=== PATIENT | female | born 1995 | race Caucasian/White ===

== ENCOUNTER 2016-07-20 17:50 | Emergency (ER) | payer OTHER ==
--- NOTE | ~2016-07-20 | ER ---
PATIENT'S NAME: ERIC COVINGTON [facility] AGE: 21 Y [address] ROOM: [place] [address] LOCATION: [facility] ADMIT DATE: 07/20/2016 ER/Outpatient Report DISCHARGE DATE: 07/20/2016 FAMILY PHYSICIAN: Juan Méndez MD ATTENDING PHYSICIAN: Vikash Graf Time of Arrival: 1750 hours. Time of Evaluation: 1817 hours. IDENTIFICATION: A 21-year-old female. CHIEF COMPLAINT: Head injury. HISTORY OF PRESENT ILLNESS: The patient is a 21-year-old female with type 1 diabetes. She has an insulin pump, but has not had it on for the past 2 days because she has not gotten a new one sent to her. She has been using just p.r.n. insulin and actually did not take her long-acting insulin yesterday. This morning, she said that she got out of the shower and blacked out. She fell back and hit the back of her head. She then vomited at 11:00 a.m. Her boyfriend got her to bed, and then she apparently slept all afternoon. When I asked her if she was unconscious, she said, "I do not know." She complains of a posterior headache and some back pain. Her legs feel heavy, and she has had vomiting and diarrhea since yesterday. PAST MEDICAL HISTORY: ALLERGIES: NO KNOWN DRUG ALLERGIES. CURRENT MEDICATIONS: Humalog insulin pump, she has not had in weeks; she told me a couple of days, but she told the nurse 2 weeks. Lantus, she has not had in over 24 hours. She is getting subcu Humalog in the past 2 weeks. MEDICAL PROBLEMS: Diabetes type 1, obesity, asthma, pseudotumor cerebri, and thyroiditis. PRIOR SURGERIES: EGD, spinal tap, and urethral surgery. SOCIAL HISTORY: The patient lives here in [place]. 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 Tobacco use, denies. PATIENT'S NAME: ERIC COVINGTON [facility] AGE: 21 Y [address] ROOM: [place] [address] LOCATION: [facility] ADMIT DATE: 07/20/2016 ER/Outpatient Report DISCHARGE DATE: 07/20/2016 FAMILY PHYSICIAN: Juan Méndez MD ATTENDING PHYSICIAN: Vikash Graf Alcohol use, denies. Drug use, denies. FAMILY HISTORY: Positive for diabetes, hypertension, hypothyroidism, and CVA. REVIEW OF SYSTEMS: All systems reviewed and negative other than what is noted in the HPI. The patient states her last menstrual period was on June 20 and was normal. She denies chance of . PHYSICAL EXAMINATION: VITAL SIGNS: Height 5 feet 2 inches, weight 94.2 kg. Blood pressure 161/87, pulse 120, respirations 16, temperature 98.6, and saturations 98% on room air. Recheck heart rate after IV fluids was 84. GENERAL: A 21-year-old female, in no acute distress. HEAD: Normocephalic, atraumatic. EARS: TMs translucent, both ears. EYES: Pupils equal and reactive to light and accommodation. Extraocular movements intact. NOSE: Mucosa pink. No lesions or drainage. MOUTH: No lesions. Pharynx benign. NECK: Supple. No lymphadenopathy. SPINE: No tenderness to palpation of her cervical spine or thoracic spine. She does have some lumbar spine tenderness, specifically in the lumbar paraspinal region. HEART: Sinus tachycardia. No murmur, rub, or gallop. LUNGS: Clear to auscultation. ABDOMEN: Bowel sounds present. Soft. Nondistended. No hepatosplenomegaly. No palpable masses. Minimally tender to deep palpation. No rebound or guarding. SKIN: [place], warm, and dry. No lesions or rashes noted. NEURO: The patient is alert and oriented x4. Cranial nerves 2 through 12 grossly intact. Motor strength 5/5 throughout. Sensation is intact to light touch. No lower extremity edema. No calf tenderness. LABORATORY DATA AND X-RAYS: EKG: Sinus tachycardia, 104 beats per minute. Nonspecific ST-T wave changes. CPK 50, CK-MB 0.8, troponin I less than 0.040. HCG elevated at 295. Serum ketones positive at 1:8. UA: 1000 mg of glucose per dL, 150 mg of ketones per dL. Sodium 135, potassium 3.9, chloride 105, CO2 of 18, BUN 14, creatinine 0.8, blood sugar 228. Liver enzymes normal. Magnesium 1.8. Hemoglobin 12.5, hematocrit 38.8, platelets 390, white count 12.5 with a normal differential. Venous pH 7.37. Head CT, normal per Radiology. IMPRESSION: PATIENT'S NAME: ERIC COVINGTON [facility] AGE: 21 Y [address] ROOM: [place], [place] [address] LOCATION: [facility] ADMIT DATE: 07/20/2016 ER/Outpatient Report DISCHARGE DATE: 07/20/2016 FAMILY PHYSICIAN: Juan Méndez MD ATTENDING PHYSICIAN: Vikash Graf 1. Head injury. 2. Early . 3. Diabetic ketoacidosis. PLAN: The patient was given 1 L of IV fluids here and Zofran for nausea. She felt much improved. Her vital signs were normal. She will go home to rest, monitor sugars 4 times daily, head injury precautions, and follow up with Dr. Méndez in 1 day, follow up sooner if any problems or concerns, and I did discuss this with Dr. Harvey. ED COE MD CAR/modl /[id number] d: 07/21/16 0617 t: 07/22/16 0538, OUTPATIENT REPORT
[~2016-07-20 17:50] MED LIST: HUMALOG100 UNIT/1 SUB-Q; LANTUS (IN100 UNIT/M SUB-Q; NOVOLOG100 UNIT/M SUB-Q; TYLENOL325 MG PO; XANAX0.25 MG PO; ZOLOFT50 MG PO
[2016-07-20 18:54] LABS: BASOPHIL # 0.1 K/uL (0.0-0.2); BASOPHIL % 0.4 %; BICARBONATE 17.9 mmol/L (18.0-23.0); EOSINOPHIL % 0.2 %; HEMATOCRIT 38.8 % (33.0-46.0); HEMOGLOBIN 12.5 g/dL (11.0-15.0); IMMATURE GRANULOCYTE % 0.3 %; LYMPHOCYTE # 1.6 K/uL (0.8-4.0); LYMPHOCYTE % 12.8 %; MCHC 32.2 gm/dL (32.0-36.5); MCV 77.4 fl (83.0-98.0); MONOCYTE # 0.6 K/uL (0.0-1.0); MONOCYTE % 4.8 %; MPV 10.3 fl (9.4-12.4); NEUTROPHIL # (ANC) 10.2 K/uL (1.8-7.8); NEUTROPHIL % 81.5 %; NRBC % 0 /100WBC (0-0.00); PCO2 31 mmHg (35-45); PLATELET COUNT 390 K/uL (150-450); RBC 5.01 M/uL (3.50-5.00); RDW-CV 15.4 % (11.9-14.6); WBC 12.5 K/uL (4.0-11.0)
[2016-07-20 18:55] LABS: PO2 49 mmHg (80-90)
[2016-07-20 19:04] LABS: BILIRUBIN URINE NEGATIVE (NEGATIVE); BLOOD URINE NEGATIVE /UL (NEGATIVE); COLOR URINE YELLOW (YELLOW); GLUCOSE URINE 1000 mg/dL (NEGATIVE); KETONE URINE 150 mg/dL (NEGATIVE); LEUKOCYTES URINE NEGATIVE /UL (NEGATIVE); NITRITE URINE NEGATIVE (NEGATIVE); PROTEIN URINE NEGATIVE (NEGATIVE); TURBIDITY URINE CLEAR (CLEAR); UROBILINOGEN URINE NORMAL (NORMAL)
[2016-07-20 19:17] LABS: ALBUMIN 3.7 gm/dL (3.5-5.0); ALK PHOS 111 IU/L (33-138); ALT 18 IU/L (12-78); ANION GAP 15.9 (10.0-19.0); AST 10 IU/L (10-40); BLOOD UREA NITROGEN 14 mg/dL (6-24); CALCIUM 8.9 mg/dL (8.5-10.5); CHLORIDE 105 mMol/L (96-110); CO2 18 mMol/L (22-32); CREATININE 0.8 mg/dL (0.5-1.1); ESTIMATED GFR (MDRD EQUATION) > 60; MAGNESIUM 1.8 mg/dL (1.8-2.6); PHOSPHORUS 1.7 mg/dL (2.5-4.9); POTASSIUM 3.9 mMol/L (3.7-5.1); SODIUM 135 mMol/L (135-145); TOTAL BILIRUBIN 0.5 mg/dL (0.0-1.5); TOTAL PROTEIN 8.3 g/dL (6.0-8.4)
[2016-07-20 20:43] LABS: CPK 50 IU/L (21-215)
== END 2016-07-20 22:21 | disposition disaster alternative care site (69) ==
LOC: GACC 17:50
PROVIDERS: Emergency Medicine; Family Medicine
DX: O9A.219 Injury, poisoning and certain other consequences of external causes complicating pregnancy, unspecified trimester (principal); S09.90XA Unspecified injury of head, initial encounter; O24.919 Unspecified diabetes mellitus in pregnancy, unspecified trimester; E10.10 Type 1 diabetes mellitus with ketoacidosis without coma; O99.280 Endocrine, nutritional and metabolic diseases complicating pregnancy, unspecified trimester; E06.9 Thyroiditis, unspecified; J45.909 Unspecified asthma, uncomplicated; Z98.890 Other specified postprocedural states; E66.9 Obesity, unspecified; W18.39XA Other fall on same level, initial encounter; Y93.89 Activity, other specified
CPT/HCPCS: J2405; J7030

== ENCOUNTER 2016-08-05 22:31 | Emergency (ER) | payer OTHER ==
--- NOTE | ~2016-08-05 | ER ---
PATIENT'S NAME: ERIC COVINGTON [facility] AGE: 21 Y [address] ROOM: [place] [id number] LOCATION: [facility] ADMIT DATE: 08/05/2016 ER/Outpatient Report DISCHARGE DATE: 08/06/2016 FAMILY PHYSICIAN: Juan Méndez MD ATTENDING PHYSICIAN: Melvin Ruiz CHIEF COMPLAINT: Vaginal bleeding in . HISTORY OF PRESENT ILLNESS: The patient does not remember her last menstrual period, but it was sometime in May. She was seen at the start of July and diagnosed with after some evaluation related to a fall. She notes that she had significant bleeding today, did go through 3 pads and at that time had significant bleeding. She had spotting starting several days ago. She denies any significant pain associated with this. This is her first . She denies history of STI or unusual vaginal discharge and has no fevers, chills, nausea, or vomiting. She was working today and thus could not come in for evaluation until now. She does have a history of diabetes, but denies any other major medical issues. PAST MEDICAL HISTORY: Documented on the record and reviewed by me. SOCIAL HISTORY: Documented on the record and reviewed by me. MEDICATIONS: Documented on the record and reviewed by me. ALLERGIES: DOCUMENTED ON THE RECORD AND REVIEWED BY ME. REVIEW OF SYSTEMS: All systems are reviewed and negative except as noted in the HPI. PHYSICAL EXAMINATION: VITAL SIGNS: Blood pressure 154/70, pulse is 93, respiratory rate is 18, temperature 98.4, SpO2 is 90% on room air. GENERAL: Age appropriate female, sitting upright on exam table in no acute pain or distress. NEUROLOGIC: Awake and alert. GCS 15. No focal deficits. No asymmetry. HEENT: Normocephalic, atraumatic. Eyes are PERRL. Oropharynx is clear. PATIENT'S NAME: ERIC OCVINGTON [facility] AGE: 21 Y [address] ROOM: [place], [place] [address] LOCATION: [facility] ADMIT DATE: 08/05/2016 ER/Outpatient Report DISCHARGE DATE: 08/06/2016 FAMILY PHYSICIAN: Juan Méndez MD ATTENDING PHYSICIAN: Melvin Ruiz NECK: Supple. Trachea is midline. CHEST/HEART: Regular rate and rhythm with no murmurs. LUNGS: Clear to auscultation bilaterally with no rhonchi, wheezes, or rales. ABDOMEN: Benign, soft, and nontender. BACK: Normal to inspection. : Normal female genitalia. Vaginal mucosa is moist and pink. The cervix is midposition. The os is open. There is tissue visible. Scant bleeding appreciated. EXTREMITIES: Warm and well perfused with no deformities. SKIN: Warm, dry, and intact. LABORATORY DATA AND X-RAYS: Blood type O positive. CMS with elevated glucose otherwise grossly unremarkable. HCG is 8657. White blood cell count 10.6, hemoglobin 11.2, platelets of 337, INR is 1. Transvaginal ultrasound dates fetus at 6 weeks 1 day with heart rate of 120. IMPRESSION: Threatened versus inevitable miscarriage. EMERGENCY DEPARTMENT COURSE: The patient was seen and evaluated as above. Presentation not consistent with infection. Ultrasound diagnosis IUP with heart rate. Based on the open os with tissue prolapsing and significant bleeding with a low heart rate, I think this is likely an inevitable . I did discuss the case with Dr. Rothman and the patient will be referred to clinic in the morning for further evaluation and treatment. She is to take Tylenol as needed if any cramping or pain. She is to return immediately if she is soaking a pad an hour for more than 3 hours or starts passing clots the size of quarters or golf balls. All questions were answered and the patient was discharged in good condition and remarkably good spirits in this setting. MD DAVINA SERVIN/marsha /[id number] d: 08/06/16 08 t: 08/11/16 0952, OUTPATIENT REPORT
[2016-08-05 23:22] LABS: BASOPHIL % 0.4 %; EOSINOPHIL # 0.1 K/uL (0.0-0.5); EOSINOPHIL % 0.6 %; HEMOGLOBIN 11.2 g/dL (11.0-15.0); IMMATURE GRANULOCYTE % 0.3 %; LYMPHOCYTE # 2.2 K/uL (0.8-4.0); LYMPHOCYTE % 20.4 %; MCH 25.5 pg (27.0-34.0); MCV 79.5 fl (83.0-98.0); MONOCYTE # 0.6 K/uL (0.0-1.0); MONOCYTE % 5.6 %; NEUTROPHIL # (ANC) 7.7 K/uL (1.8-7.8); NEUTROPHIL % 72.7 %; NRBC % 0 /100WBC (0-0.00); PLATELET COUNT 337 K/uL (150-450); RDW-CV 15.2 % (11.9-14.6); WBC 10.6 K/uL (4.0-11.0)
[2016-08-05 23:34] LABS: INR - (THERAPEUTIC) 0.93 (0.92-1.07); PROTIME 9.8 SECONDS (9.8-11.4); PTT 25 SECONDS (25-32)
[2016-08-05 23:42] LABS: ALBUMIN 3.5 gm/dL (3.5-5.0); ALK PHOS 101 IU/L (33-138); ALT 17 IU/L (12-78); ANION GAP 18.9 (10.0-19.0); AST 13 IU/L (10-40); BLOOD UREA NITROGEN 10 mg/dL (6-24); CALCIUM 8.7 mg/dL (8.5-10.5); CHLORIDE 101 mMol/L (96-110); CO2 19 mMol/L (22-32); CREATININE 0.8 mg/dL (0.5-1.1); ESTIMATED GFR (MDRD EQUATION) > 60; POTASSIUM 3.9 mMol/L (3.7-5.1); SODIUM 135 mMol/L (135-145); TOTAL BILIRUBIN 0.6 mg/dL (0.0-1.5); TOTAL PROTEIN 7.6 g/dL (6.0-8.4)
== END 2016-08-06 00:12 | disposition disaster alternative care site (69) ==
LOC: GMED 22:31
PROVIDERS: Emergency Medicine
DX: O20.9 Hemorrhage in early pregnancy, unspecified (principal); O24.911 Unspecified diabetes mellitus in pregnancy, first trimester; Z79.4 Long term (current) use of insulin; Z3A.01 Less than 8 weeks gestation of pregnancy

== ENCOUNTER 2016-10-18 16:46 | Inpatient (IN) | payer OTHER ==
[~2016-10-18] VITALS: Ht 157.5 cm; Wt 94.5 kg
--- NOTE | ~2016-10-18 | HP ---
PATIENT'S NAME: ERIC COVINGTON [facility] AGE: 21 Y [address] ROOM: [place] [address] LOCATION: [facility] ADMIT DATE: 10/18/2016 History & Physical DISCHARGE DATE: FAMILY PHYSICIAN: LETTY LEDESMA MD ATTENDING PHYSICIAN: JUAN STEINBERG DATE OF SERVICE: CHIEF COMPLAINT: Nausea, vomiting, and bilateral central vision loss. 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 She was at work and started feeling sick. She threw up one time and she went home. She was driving while she felt that her upper torso and arms were numb, both of them and after couple of minutes, she lost central vision in her both eyes bilaterally, which have not been recovered yet. She also complained that she was getting cotton mouth and she was getting a feeling that she is going into diabetic ketoacidosis. On my encounter, mom is also there and it is reported that in the past she had blurry vision but nothing like this. There is a history of concussion. However, she fell from 6 feet and hit her head on the floor. On further inquiry, she denied any headache, any dizziness, any trouble swallowing, any chest pain, any palpitation, abdominal pain, any burning on urination, or any extremity edema or any irregular bowel habits. REVIEW OF SYSTEMS: All other systems reviewed and were negative except what is mentioned in the HPI. ALLERGIES: NO KNOWN DRUG ALLERGIES. PAST MEDICAL HISTORY: Insulin-dependant diabetes mellitus. MEDICATIONS: Lantus once daily, unknown dose. FAMILY HISTORY: Positive for diabetes in dad. PHYSICAL EXAMINATION: VITAL SIGNS: 151/22, 110, 16, and afebrile. GENERAL: In no acute distress. Alert and oriented x3. PATIENT'S NAME: EIRC COVINGTON [facility] AGE: 21 Y [address] ROOM: [place] [address] LOCATION: [facility] ADMIT DATE: 10/18/2016 History & Physical DISCHARGE DATE: FAMILY PHYSICIAN: LETTY LEDESMA MD ATTENDING PHYSICIAN: JUAN STEINBERG HEENT: Head: Atraumatic and normocephalic. Eyes: Nonicteric. No pallor. On confrontation exam, there was loss of central vision bilaterally. ABDOMEN: Soft, nontender, and nondistended. Bowel sounds present. LUNGS: Clear to auscultation bilaterally. CARDIOVASCULAR: S1 and S2. No murmurs, gallops, or rubs. PSYCH: Normal affect, mood, and speech. EXTREMITIES: No clubbing, cyanosis, or edema. LYMPHATICS: No lymphangitis or lymphadenopathy noted. MUSCULOSKELETAL: No muscle tenderness noted. NEURO: As mentioned above. Central loss of vision with preserved peripheral vision bilaterally. There is scalp tenderness on the right side. No other gross motor or sensory deficit noted. LABORATORY DATA: Lab work done in the emergency department today showed pH of 7.23 and lactate of 2.5. White count of 12.9. Glucose 424, sodium 133, alkaline phosphatase 150, bilirubin 0.9, anion gap of 22, beta hydroxybutyric acid positive. ESR 44 and CRP of 5. ASSESSMENT: 1. Diabetic ketoacidosis. 2. Bilateral central vision loss. PLAN: 1. We are going to start her on DKA protocol. Aggressive IV hydration and replacement of electrolytes. 2. Bilateral vision loss is very concerning at this point. Broad differential diagnosis are being considered. A CAT scan of the head is ordered again and MRI and MRV ordered. I did speak to Dr. Soto from Neurology at length about this patient and he is going to come and see the patient. Dr. Avendaño is at bedside, evaluating the patient. Further management will depend on her progress in the hospital. I explained this concerning situation to the family. I did raise the possibility of giant cell arteritis with Dr. Soto, but it is almost impossible given her very young and giant cell arteritis almost never happens before the age of 50. MD BERNARDA SINGH/marsha PATIENT'S NAME: ERIC COVINGTON [facility] AGE: 21 Y [address] ROOM: [place] [address] [facility] ADMIT DATE: 10/18/2016 History & Physical DISCHARGE DATE: FAMILY PHYSICIAN: LETTY LEDESMA MD ATTENDING PHYSICIAN: JUAN STEINBERG /[id number] D: [id number] T: [id number] HISTORY & PHYSICAL
--- NOTE | ~2016-10-18 | ER ---
PATIENT'S NAME: ERIC COVINGTON [facility] AGE: 21 Y [address] ROOM: [place] [address] LOCATION: [facility] ADMIT DATE: 10/18/2016 ER/Outpatient Report DISCHARGE DATE: FAMILY PHYSICIAN: LETTY LEDESMA MD ATTENDING PHYSICIAN: JUAN STEINBERG CHIEF COMPLAINT: Diabetic issue. HISTORY OF PRESENT ILLNESS: Ms. Covington was driving her vehicle this afternoon when she noticed that all of a sudden her ability to see was markedly diminished. She pulled over and called the ambulance. She was found to have high blood sugar. She thought this was related to her diabetes. She was brought in by ambulance. She denies any fevers, chills, cough, nausea, vomiting, chest pain, or other symptoms other than she cannot see in the middle of her vision, but can see on the edges which is a new thing for her. She also states that she has some tingling in her body, but no other specific symptoms. She states that she was at her significant other's last evening, did not take her Lantus, but also has not eaten. She states she normally takes Humalog when her blood sugar is high and she usually runs around 140-160. PAST MEDICAL HISTORY: Documented on the record and reviewed by me. SOCIAL HISTORY: Documented on the record and reviewed by me. MEDICATIONS: Documented on the record and reviewed by me. ALLERGIES: DOCUMENTED ON THE RECORD AND REVIEWED BY ME. REVIEW OF SYSTEMS: All systems were reviewed and negative except as noted in the HPI. PHYSICAL EXAMINATION: VITAL SIGNS: Blood pressure 141/65, pulse 120, respiratory rate is 18, temp 98.9, SpO2 is 98% on room air. Pain is rated at 8/10. GENERAL: An age-appropriate female, sitting upright on exam table, anxious look with no apparent pain or distress. NEUROLOGIC: The patient is awake and alert. GCS is 15. The patient has what appears to be a central vision loss bilateral. She has peripheral visual PATIENT'S NAME: ERIC COVINGTON [facility] AGE: 21 Y [address] ROOM: [place] [address] LOCATION: [facility] ADMIT DATE: 10/18/2016 ER/Outpatient Report DISCHARGE DATE: FAMILY PHYSICIAN: LETTY LEDESMA MD ATTENDING PHYSICIAN: JUAN STEINBERG flores intact and appropriate as expected for age; however, central vision is diminished. She has normal and consensual pupillary reflexes to light bilateral. She cannot count fingers. Extraocular movements are intact. No other abnormalities. No difficulty with rapid alternating movement or heel-to- adam testing. Past pointing could not be performed for obvious reasons. HEENT: Normocephalic, atraumatic. Eyes are PERRL. Oropharynx is clear. NECK: Supple. Trachea is midline. CHEST: Heart is tachycardic, but regular. No murmurs. LUNGS: Clear to auscultation bilaterally. No rhonchi, wheezes, or rales. ABDOMEN: Soft, nontender, and nondistended. No rebound or guarding. BACK: Normal to inspection and palpation. No CVA tenderness. EXTREMITIES: Warm and well perfused. No obvious deformities or edema. SKIN: Clean, dry, and intact. LABORATORY DATA AND X-RAYS: Chest x-ray is unremarkable per my review. CT of the brain is pending. EKG is sinus tachycardia with no other obvious abnormalities. White count is 12.9, hemoglobin 12.4, platelets of 405. INR is 93. ESR is 44. CMS: Sodium is 133, potassium 4.6, chloride is 102, CO2 is 13, anion gap is 18, glucose 424. BUN 15, creatinine 0.9. LFTs grossly unremarkable other than alk phos of 150. GFR is greater 90. CRP is 5.7. HCG is less than 1. Beta hydroxybutyrate is 66.7. Urinalysis with glucosuria, ketones, and small blood, not consistent with infection or stone. D-dimer is undetectable. Arterial blood gas; pH 7.26, pCO2 is 22, pO2 is 111, bicarb is 9.9, CO2 is 11, base excess -15.3 on room air. Lactate is 2.5. IMPRESSION: 1. Diabetic ketoacidosis. 2. Bilateral central vision loss. 3. Chest pain, improved. EMERGENCY DEPARTMENT COURSE: The patient was seen and evaluated as above. EKG is unremarkable. Not consistent with ischemic event. She is definitely in DKA. Insulin drip was initiated. The vision loss is very odd at this time. Likely related to fluid shifts and hyperglycemia; however, Dr. Avendaño was consulted and will see the patient. The patient will be admitted to the Hospitalist Service for further evaluation and treatment of the DKA and the vision changes. I am unsure as to the etiology of the chest pain other than possible panic with the loss of her vision as it started afterwards. In any case, the patient was dispositioned to the hospital. CRITICAL CARE TIME: 43 minutes of critical care time was spent on this patient in patient evaluation; re-evaluation; ordering and interpreting chest x-ray, EKG, and PATIENT'S NAME: ERCI COVINGTON [facility] AGE: 21 Y [address] ROOM: [place] [address] [facility] ADMIT DATE: 10/18/2016 ER/Outpatient Report DISCHARGE DATE: FAMILY PHYSICIAN: LETTY LEDESMA MD ATTENDING PHYSICIAN: JUAN STEINBERG labs; ordering head CT; discussion with multiple providers; arranging for admission and care as warranted for the life-threatening condition of acute diabetic ketoacidosis. MD DAVINA SERVIN/marsha /[id number] d: 10/19/16700 t: 11/02/16 0949, OUTPATIENT REPORT
--- NOTE | ~2016-10-18 | CON ---
PATIENT'S NAME: ERIC COVINGTON [facility] AGE: 21 Y [address] ROOM: [id number] [place], [place] [address] LOCATION: GPCU ADMIT DATE: 10/18/2016 Consultation DISCHARGE DATE: 10/20/2016 FAMILY PHYSICIAN: Juan Méndez MD ATTENDING PHYSICIAN: Jethro Lei DATE OF CONSULTATION: 10/20/2016 NEUROLOGIC CONSULTATION TIME: 11:00 a.m. HISTORY OF PRESENT ILLNESS: Ms. Covington has been in this hospital for greater than 24 hours after she presented to our hospital with sudden onset of blindness in both eyes. She reported in the emergency room that she was experiencing central vision loss but had some peripheral vision in both her eyes, but her central vision was completely lost. The patient denied any headaches at that time. She denied any other neurologic deficits such as weakness, and she had no recent migraine history. She had to puller out, and she called an ambulance. She was noted to have high blood sugars as high as into the 400 range. She is a type 1 diabetic, and based upon her presentation, it was determined that the patient was in diabetic ketoacidosis. According to the patient, she had skipped her morning dose of insulin, but more likely than not was also experiencing some issues with some nauseousness and vomiting. States that she religiously does take her insulin. For some reason, she had some issues that she was going through that she could not take the insulin at that time. She did come in acidotic with a pH of 7.26, which is suggestive that the patient lacked insulin for more than just the morning dose. Ketone bodies were positive including beta hydroxybutyrate in her urine. There was slight elevation in her ESR to 44 and CRP was 5. Rest of her basic metabolic panel was essentially within normal limits, but her glucose was elevated at 424, white count was slightly elevated at 12.9 likely associated with leukemoid reaction to vomiting. I was called by the hospitalist to assess the patient based upon the sudden vision loss. I have never heard of bilateral vision loss that comes on suddenly. As far as a neurologic presentation, the only way that this would be a presentation is if somebody had a stroke on both sides of the brain in the occipital lobe or sudden swelling of the occipital lobe such as in a PRES, posterior reversible swelling that is often seen in hypertension. The patient did not have any evidence for hypertension. I had to look through the literature to see if anything was suggestive of this in diabetic ketoacidosis, and I found a small article on June 03 Journal of the investigative medicine that described only a rare case of reversible blindness associated with diabetic ketoacidosis. Nonetheless, we did a workup for the PATIENT'S NAME: ERIC COVINGTON [facility] AGE: 21 Y [address] ROOM: [id number] [place] [id number] LOCATION: GPCU ADMIT DATE: 10/18/2016 Consultation DISCHARGE DATE: 10/20/2016 FAMILY PHYSICIAN: Juan Méndez MD ATTENDING PHYSICIAN: Jethro Lei patient from a neurologic basis to rule out any evidence of swelling into the back of the brain or suggestive evidence of a thrombosis of the venous beds, particularly at the back of the brain. An MRV thankfully was negative, and CATs and the MRI of the brain were within normal limits. The patient absolutely denied any illicit drug use or any illicit intoxications such as with methanol, ethylene glycol ingestion. She denied any head trauma. She denied any recent history of migraine headaches would be suggestive of a visual aura, which sometimes could present with bilateral scotoma, will often not with complete loss of vision. The patient was admitted over the course of the night time, and by approximately 1:00 p.m. the next day, the patient's vision returned to baseline. This was in the setting of receiving insulin in the setting of her ketoacidosis. The patient was doing well today. States that her vision was completely back to normal, and she had normal visual acuity, and identification of her finger count was complete in all quadrants. ALLERGIES: NO KNOWN ALLERGIES. PAST MEDICAL HISTORY: Insulin-dependent diabetes type 1. MEDICATIONS: 1. Insulin detemir 42 units subcu q.a.m. as well as regular insulin was being used for treatment here in the hospital, but regular insulin now discontinued. 2. Zofran 4 mg q.6 hours p.r.n. nauseousness. SOCIAL HISTORY: She is a nonsmoker. She works as a [employer] in our hospital. She does not use any alcohol. FAMILY HISTORY: Positive for diabetes in her father. REVIEW OF SYSTEMS: The patient had an event of elevation in her sugar to the 400s range, presented with acidosis and ketone bodies positive clearly associated with diabetic ketoacidosis. She is doing well now and has no complaints. Vision had completely come back after her sugar levels were brought down and metabolic state was improved with fluids and insulin treatment. The rest of the review of systems is within normal limits. There is no evidence of any cardiac abnormalities. No skin excoriations. The patient denies any headaches. She is eating well now. Denies any nauseousness. PHYSICAL EXAMINATION: PATIENT'S NAME: ERIC COVINGTON [facility] AGE: 21 Y [address] ROOM: [address] [address] LOCATION: GPCU ADMIT DATE: 10/18/2016 Consultation DISCHARGE DATE: 10/20/2016 FAMILY PHYSICIAN: Juan Méndez MD ATTENDING PHYSICIAN: eJthro Lei VITAL SIGNS: Pulse 87 and regular, respiration 14, blood pressure 135/58, temperature 36.7. NEUROLOGIC: Cranial nerves 2 through 12 were intact. Motor: Normal power of the bilateral upper and lower extremities. Normal bulk and tone. Normal coordination on [id number]. Rapid alternating hand movements were normal. Her gait was normal, narrow based, negative Romberg. No sensory disruption to light touch, and reflexes were symmetric at +2 in the upper and lower extremities. Plantar reflexes downgoing. IMPRESSION: Ms. Covington is a 21-year-old female with insulin-dependent diabetes type 1. She rapidly went into diabetic ketoacidosis after she stated that she did not take her insulin during the morning. It is possible that she may have missed insulin even the prior evening before. I did not have knowledge that bilateral blindness can be resulting of a person being going into diabetic ketoacidosis, but I did find literature that supported this, but it is still a very rare occurrence. Clearly with her metabolic state improved as well as bringing down her glucose to normal and sufficiently giving her back insulin, her vision returned to her baseline. I do not recognize any visual field deficits in this patient. The patient should know in the future never to miss any insulin dosing because she can go into a rapid diabetic ketoacidosis even with simple sugar elevations into the 200 to 300 range. She should also make sure that she remains hydrated in case she ever experiences event of nauseousness and vomiting. The patient is doing well. I am told the patient is likely going to be discharged today. MD MARIO CHAUHAN/modl /[id number] d: 10/20/16 2342 t: 11/23/16 1510, CONSULTATION REPORT
--- NOTE | ~2016-10-18 | DS ---
PATIENT'S NAME: ERIC COVINGTON [facility] AGE: 21 Y [address] ROOM: [place] [id number] LOCATION: GPCU ADMIT DATE: 10/18/2016 Discharge Summary DISCHARGE DATE: 10/20/2016 FAMILY PHYSICIAN: Juan Méndez MD ATTENDING PHYSICIAN: Jethro Lei PRINCIPAL DIAGNOSES: 1. Diabetic ketoacidosis. 2. Sudden transient visual loss. 3. Insulin-dependent diabetes mellitus. BRIEF HOSPITAL COURSE: Please refer to the admitting history and physical for a detailed explanation of initial presentation. This is a 21-year-old female with a known history of type 1 diabetes for over 5 years that presents with complaints of sudden central visual loss while she was driving. Upon prompt evaluation in the emergency room, the patient was also noted to be in DKA. Further workup was done to evaluate the reason for vision loss including evaluation by Ophthalmology and initial MRI, MRA, and CT scans did not reveal any logical explanation. The patient during her hospital stay recovered her vision and at this point has her full vision back. There is no clear explanation still as to what the cause for that is. The patient is to be evaluated by our Neurology Service and will follow up as outpatient. In the meantime, I have advised tight blood sugar control with A1c goals between 6 and 7 going forward and she verbalizes understanding. The patient is being discharged home in stable condition and will follow up with her primary care physician as outpatient. PHYSICAL EXAMINATION: GENERAL: The patient is awake, alert, oriented x3, in no acute distress. HEENT: Vision bilaterally intact. CHEST: Clear to auscultation bilaterally. HEART: S1, S2, regular rate and rhythm. ABDOMEN: Soft, nontender, nondistended. EXTREMITIES: Without edema. NEURO: Exam is nonfocal. MEDICATIONS: Per MAR. DISPOSITION: Home. FOLLOW UP: Followup with PCP within 1 week and I have advised that the patient refrain from driving for 1 week until followup with PCP. Greater than 30 minutes were spent in discharge planning and facilitating. PATIENT'S NAME: ERIC COVINGTON [facility] AGE: 21 Y [address] ROOM: [address] [address] LOCATION: GPCU ADMIT DATE: 10/18/2016 Discharge Summary DISCHARGE DATE: 10/20/2016 FAMILY PHYSICIAN: Juan Méndez MD ATTENDING PHYSICIAN: Jethro Lei BARKOT MD RAMIRO JULES/modl /[id number] d: 10/21/16 0158 t: 10/25/16 1404, DISCHARGE SUMMARY
[2016-10-18 17:19] LABS: BICARBONATE 11.7 mmol/L (18.0-23.0); LACTATE 2.5 mEq/L (0.50-1.60); PCO2 28 mmHg (35-45); PO2 56 mmHg (80-90)
[2016-10-18 17:21] LABS: BASOPHIL # 0.1 K/uL (0.0-0.2); BASOPHIL % 0.4 %; EOSINOPHIL % 0.2 %; HEMATOCRIT 38.7 % (33.0-46.0); HEMOGLOBIN 12.4 g/dL (11.0-15.0); IMMATURE GRANULOCYTE # 0.1 K/uL (0.0-0.3); IMMATURE GRANULOCYTE % 0.4 %; LYMPHOCYTE # 1.4 K/uL (0.8-4.0); LYMPHOCYTE % 10.5 %; MCH 26.6 pg (27.0-34.0); MCV 82.9 fl (83.0-98.0); MONOCYTE # 0.5 K/uL (0.0-1.0); MONOCYTE % 3.9 %; MPV 10.9 fl (9.4-12.4); NEUTROPHIL # (ANC) 10.9 K/uL (1.8-7.8); NEUTROPHIL % 84.6 %; NRBC % 0 /100WBC (0-0.00); RBC 4.67 M/uL (3.50-5.00); RDW-CV 14.4 % (11.9-14.6); WBC 12.9 K/uL (4.0-11.0)
[2016-10-18 17:23] LABS: PLATELET COUNT 405 K/uL (150-450)
[2016-10-18 17:33] LABS: INR - (THERAPEUTIC) 0.93 (0.92-1.07); PROTIME 9.8 SECONDS (9.8-11.4); PTT 24 SECONDS (25-32)
[2016-10-18 17:41] LABS: ALBUMIN 3.4 gm/dL (3.5-5.0); ALK PHOS 150 IU/L (33-138); ALT 18 IU/L (12-78); AST 15 IU/L (10-40); BLOOD UREA NITROGEN 15 mg/dL (6-24); CALCIUM 8.8 mg/dL (8.5-10.5); CHLORIDE 102 mMol/L (96-110); CREATININE 0.9 mg/dL (0.5-1.1); POTASSIUM 4.6 mMol/L (3.7-5.1); SODIUM 133 mMol/L (135-145); TOTAL PROTEIN 7.8 g/dL (6.0-8.4)
[2016-10-18 17:42] LABS: ANION GAP 22.6 (10.0-19.0); CO2 13 mMol/L (22-32)
[2016-10-18 17:43] LABS: TOTAL BILIRUBIN 0.9 mg/dL (0.0-1.5)
[2016-10-18 17:53] LABS: BILIRUBIN URINE NEGATIVE (NEGATIVE); BLOOD URINE 50 /UL (NEGATIVE); GLUCOSE URINE 1000 mg/dL (NEGATIVE); KETONE URINE 150 mg/dL (NEGATIVE); LEUKOCYTES URINE NEGATIVE /UL (NEGATIVE); NITRITE URINE NEGATIVE (NEGATIVE); PROTEIN URINE NEGATIVE (NEGATIVE); UROBILINOGEN URINE NORMAL (NORMAL)
[2016-10-18 18:04] LABS: PCO2 22 mmHg (35-45); PO2 111 mmHg (80-90)
[2016-10-18 18:05] LABS: BICARBONATE 9.9 mmol/L (18.0-23.0)
[2016-10-18 18:06] LABS: COLOR URINE YELLOW (YELLOW); TURBIDITY URINE CLEAR (CLEAR)
[2016-10-18 18:07] LABS: BACTERIA URINE FEW (NEGATIVE); RBC URINE 0-2 #/HPF (NEGATIVE); WBC URINE 0-2 #/HPF (NEGATIVE)
[2016-10-18 21:43] LABS: ANION GAP 14.6 (10.0-19.0); BLOOD UREA NITROGEN 11 mg/dL (6-24); CALCIUM 8.3 mg/dL (8.5-10.5); CHLORIDE 108 mMol/L (96-110); CO2 20 mMol/L (22-32); CREATININE 0.6 mg/dL (0.5-1.1); POTASSIUM 4.6 mMol/L (3.7-5.1); SODIUM 138 mMol/L (135-145)
[2016-10-18] MEDS ORDERED: LANTUS (IN100 UNIT/M SUB-Q (22:03)
--- NOTE | 2016-10-18 23:56 | NUR ---
Pt admitted from ER for DKA. Pt was driving when she experienced vision loss. Pt was transported to [facility] by EMT. Pt was given 1L bolus enroute and received another 1L bolus in ER. DKA protocol was initiated and pt was started on insulin drip. Pt's peripheral vision returned, but central vision was still impaired. MRI and CXR was taken with both imaging coming back with no abnormalities. Pt was admitted to PCU for DKA protocol.
[2016-10-19 01:04] LABS: ANION GAP 12.3 (10.0-19.0); BLOOD UREA NITROGEN 9 mg/dL (6-24); CALCIUM 8.1 mg/dL (8.5-10.5); CHLORIDE 109 mMol/L (96-110); CO2 22 mMol/L (22-32); CREATININE 0.8 mg/dL (0.5-1.1); POTASSIUM 4.3 mMol/L (3.7-5.1); SODIUM 139 mMol/L (135-145)
--- NOTE | 2016-10-19 04:38 | NUR ---
Significant Event: Pt A&Ox3. VS stable, remains on RA. No c/o pain. Up ad campbell, independent. Insulin gtt and IVF d/c'd. PIV LH, SL. Accuchecks ACHS, mild scale. Does have CHO count 1 unit per 8g CHO. Daily levemir 42 units. Vision is returning. Pt can see approximately 80% of field now. Follow up: Continue plan of care.
[2016-10-19 07:13] LABS: HEMATOCRIT 33.5 % (33.0-46.0); HEMOGLOBIN 10.6 g/dL (11.0-15.0); MCH 26.1 pg (27.0-34.0); MCHC 31.6 gm/dL (32.0-36.5); MCV 82.5 fl (83.0-98.0); MPV 10.4 fl (9.4-12.4); RBC 4.06 M/uL (3.50-5.00); RDW-CV 14.6 % (11.9-14.6); WBC 6.2 K/uL (4.0-11.0)
[2016-10-19 07:34] LABS: CALCIUM 8.3 mg/dL (8.5-10.5); CHLORIDE 108 mMol/L (96-110); CO2 24 mMol/L (22-32); CREATININE 0.7 mg/dL (0.5-1.1); SODIUM 140 mMol/L (135-145)
[2016-10-19 07:35] LABS: BLOOD UREA NITROGEN 14 mg/dL (6-24)
--- NOTE | 2016-10-19 11:09 | NUR ---
Diabetes center note: 1000 Patient admitted with DKA, no current A1C on chart. Patient completed part of the Diabetes Survival Skills checklist, CDE assisted patient in completing the remainder and emphasized importance of ketone testing, testing blood sugar more frequently and prevention of DKA. Patient states that she had an A1C done "maybe 6 months ago at the clinic" but CDE called to [facility], and there is no record of A1C done recently. Lab notified to perform A1C test today. Patient answers questions with short 1 or 2 word reply and has cell phone in hand the entire time, not interested in lengthy discussion. Emphasized importance of proper control of blood sugars to reduce risks of complications related to diabetes. Mother at bedside for education provided also. When CDE asks patient if she can think of anything that may have contributed to DKA, she reports that she missed one dose of insulin in the morning of 10/18/16. Will continue to follow throughout hospital stay
--- NOTE | 2016-10-19 11:10 | NUR ---
Introduced self and care management services to patient and mom at bedside. 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 Has financial assistance form. Is on MDI insulins Humalog and Lantus. Has been on insulin pump in past but hasn't ordered refill since without insurance. Denies concerns about going home on discharge. Will follow.
--- NOTE | 2016-10-19 17:03 | NUR ---
Significant Event: Patient alert and oriented x3. VSS. At beginning of shift had c/o 10-15% central vision loss DENISE. Vision loss resolved approx 1330. Pt denies dizziness or confusion. Lungs are clear DENISE. NSR. Voids without difficulty. No BM this shift. Pt does have concern about a wart on the bottom of her foot x2 due to diabetes. Would like to have the provider look at it in the morning. Pain from pressure on wart rated at an 8 on 0-10 scale. Follow up: Continue plan of care.
--- NOTE | 2016-10-20 04:28 | NUR ---
Significant Event: Pt A&Ox3. VS stable, remains on RA. Only c/o pain associated with walking on foot. Would like to follow up outpatient for treatment. Vision has returned and stayed. Up ad campbell, ind. Follow up: To d/c today.
--- NOTE | 2016-10-20 10:30 | NUR ---
Diabetes Consult: Patient is well known to me from previous admissions and has been seen in the Diabetes Center in the past. The patient has been to several primary care providers in the past and also several different diabetes educators. She has not been seen in the Diabetes Center in quite some time and is currently seeing Dr. Méndez at [facility] [place]. She reports she has not met with Angelica or Alyssa at [facility] and would prefer to return to the Diabetes Center for assist with glycemic management. The patient reports she stopped insulin pump therapy 3 months ago due to problems with her insurance. She states that her dad dropped her from his insurance last week and she is actively trying to apply for insurance through her place of employment. 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 Her mom reports that she would like the patient to establish care with Dr. Sow, as he is the primary care provider for Shona's grandfather. The patient was encouraged to make a commitment to staying with one primary care provider and one nurses educator, whomever she chooses. She states her A1C 3 months ago was 7.7. Currently, her A1C is 10.1%. She reports she was 2 hours over due in taking her long acting insulin when she became ill. She was informed that with her high A1C, it would not take much to make her acidotic and she must take her medications on time. Shona verbalized understanding. She denies an questions on concerns. She is planning to be discharged today. She reports having plenty of basal and rapid acting insulin at home.
--- NOTE | 2016-10-20 15:33 | NUR ---
Significant Event: Patient a/o x3. VSS. No complaints of vison loss, dizziness, nausea, or headaches. Lung sounds clear DENISE, heart sounds distinct. BG this shift were 299 and 191. Voids without difficulty, no BM this shift. IV removed from left wrist. Patient discharged to home. Education provided. Restated to patient and family for patient not to drive until follow up with PCP or 1 week, whichever one comes first. Patient verbalized understanding. Patient to follow up with primary care provider. Follow up: Primary Care Provider in 1 week.
== END 2016-10-20 15:50 | disposition disaster alternative care site (69) | DRG 639 ==
LOC: GMED 16:46 → GPCU 19:02
PROVIDERS: Emergency Medicine; Internal Medicine; ADMIT Internal Medicine
DX: E10.10 Type 1 diabetes mellitus with ketoacidosis without coma (principal); H54.3 Unqualified visual loss, both eyes; Z79.4 Long term (current) use of insulin; Z87.820 Personal history of traumatic brain injury; E10.39 Type 1 diabetes mellitus with other diabetic ophthalmic complication
CPT/HCPCS: J7030; J7040; J7121